=== PATIENT | male | born 1990 | race African-American/Black ===

== ENCOUNTER 2023-09-06 11:16 | Inpatient (IN) ==
[2023-09-06 11:53] LABS: Hematocrit 28.4 % (38-53); Mean Corpuscular Hemoglobin 20.7 pg (27-33); Mean Corpuscular Hgb Conc 31.5 g/dL (31-36); Mean Corpuscular Volume 65.6 fL (80-97); Red Blood Count 4.33 10^6/uL (4.06-5.63); Red Cell Distribution Width 15.8 % (12-17); White Blood Count 5.5 10^3/uL (3.6-10.2)
[2023-09-06 12:02] LABS: INR 1.07 (0.83-1.13)
[2023-09-06 12:17] LABS: High Sens Troponin Baseline 4 pg/mL (<20)
[2023-09-06 12:33] LABS: ALT 43 U/L (7-52); AST 43 U/L (13-39); Acetaminophen < 15 mcg/mL; Albumin 4.6 g/dL (3.2-5.2); Albumin/Globulin Ratio 1.8 (1-3); Alkaline Phosphatase 91 U/L (35-149); Anion Gap 5 mmol/L (2-16); Blood Urea Nitrogen 6 mg/dL (6-24); CO2 Carbon Dioxide 29 mmol/L (22-32); Calcium 9.2 mg/dL (8.6-10.3); Chloride 104 mmol/L (101-111); Creatinine, Serum 0.87 mg/dL (0.67-1.17); Globulin 2.6 g/dL (2-4); Glucose 83 mg/dL (70-100); Potassium 4.5 mmol/L (3.5-5.0); Salicylate < 2.50 mg/dL (<30); Sodium 138 mmol/L (135-145); Total Bilirubin 1.1 mg/dL (0.2-1.0); Total Protein 7.2 g/dL (6.4-8.9); eGFR CKD-EPI 116.8 (>60)
[2023-09-06 12:40] LABS: ABS Basophils 0.1 10^3/uL (0.0-0.1); ABS Eosinophils 0.1 10^3/uL (0.0-0.5); ABS Lymphocytes 2.1 10^3/uL (1.0-4.8); ABS Monocytes 0.3 10^3/uL (0.0-1.1); ABS Nucleated RBC 0.04 10^3/ul; Anisocytosis 1+; Eosinophil % 1.2 %; Hypochromasia 2+; Lymphocyte % 37.7 %; Mean Platelet Volume 8.3 fL (7.5-11.2); Microcytosis 3+; Nucleated Red Blood Cells % 0.7 %/100WBC (0.0-0.8); Platelet Count 99 10^3/uL (150-450); Polychromasia 1+; Target Cells 1+
[2023-09-06 12:46] LABS: Immature Retic Fraction 0.51
[2023-09-06 12:47] LABS: Corrected Retic Count 2.7 % (0.5-2.2); Hematocrit for Retic CNT 28.4 % (38-53); RBC Retic Count 4.33 10^6/ul (4.06-5.63)
[2023-09-06 13:20] LABS: High Sensitivity Troponin 1 Hr 3 pg/mL (<20)
[2023-09-06] MEDS: HYDROmorphone 0.5 MG/0.5 ML SYRINGE IV ONE ×2 (14:41→16:10)
[2023-09-06] MEDS ORDERED: Ondansetron 4 mg VIAL 2 MG/ML 2 ml VIAL IV PRN (17:09)
[2023-09-06] MEDS ORDERED: Polyethylene Glycol 3350 17 GM PACKET PO PRN (17:09)
[2023-09-06] MEDS ORDERED: HYDROmorphone 1 MG/1 ML SYRINGE IV PRN (17:23)
[2023-09-06 17:38] LABS: Folate 15.59 ng/mL (5.90-24.80)
[2023-09-06 17:39] LABS: Vitamin B12 285 pg/mL (180-914)
[2023-09-06] MEDS: Enoxaparin 40 MG/0.4 ML SYR SUBCUT SCH (18:51)
[2023-09-06] MEDS: HYDROmorphone 1 MG/1 ML SYRINGE IV PRN (19:37)
[2023-09-06] MEDS: Lactated Ringers 1000 ml BAG 1,000 ML IV SCH (21:14)
[2023-09-07 06:32] LABS: Albumin 4.5 g/dL (3.2-5.2); Calcium 9.1 mg/dL (8.6-10.3); Creatinine, Serum 0.88 mg/dL (0.67-1.17); Globulin 2.3 g/dL (2-4); Potassium 3.7 mmol/L (3.5-5.0); Total Bilirubin 1.4 mg/dL (0.2-1.0); Total Protein 6.8 g/dL (6.4-8.9); eGFR CKD-EPI 116.4 (>60)
[2023-09-07 07:22] LABS: ABS Eosinophils 0.1 10^3/uL (0.0-0.5); ABS Lymphocytes 2.6 10^3/uL (1.0-4.8); ABS Monocytes 0.6 10^3/uL (0.0-1.1); ABS Neutrophils 5.4 10^3/uL (1.5-7.6); ABS Nucleated RBC 0.13 10^3/ul; Hematocrit 27.5 % (38-53); Hemoglobin 8.7 g/dL (13.2-16.3); Lymphocyte % 30.1 %; Mean Corpuscular Hemoglobin 20.8 pg (27-33); Mean Corpuscular Hgb Conc 31.6 g/dL (31-36); Mean Corpuscular Volume 65.7 fL (80-97); Mean Platelet Volume 8.5 fL (7.5-11.2); Nucleated Red Blood Cells % 1.5 %/100WBC (0.0-0.8); Platelet Count 103 10^3/uL (150-450); Red Blood Count 4.18 10^6/uL (4.06-5.63); Red Cell Distribution Width 15.9 % (12-17); White Blood Count 8.7 10^3/uL (3.6-10.2)
[2023-09-07] MEDS: Lactated Ringers 1000 ml BAG 1,000 ML IV SCH (18:56)
[2023-09-07] MEDS ORDERED: Zosyn per Pharmacy NOTE FOLLOW UP SCH (19:00)
[2023-09-07] MEDS: Piperacillin/Tazobac 3.375 BAG 3.375 GM/100 ML BAG IV ONE (20:03)
[2023-09-07 20:47] LABS: Urine Appearance Clear; Urine Bilirubin Negative (Negative); Urine Blood Negative (Negative); Urine Color Colorless; Urine Glucose Negative (Negative); Urine Ketones Negative (Negative); Urine Nitrite Negative (Negative); Urine Protein Negative (Negative); Urine Specific Gravity 1.004 (1.002-1.030); Urine Urobilinogen Negative (Negative); Urine pH 7.5 (5.0-8.0)
[2023-09-07 20:56] LABS: ABS Eosinophils 0.1 10^3/uL (0.0-0.5); ABS Lymphocytes 2.1 10^3/uL (1.0-4.8); ABS Monocytes 0.5 10^3/uL (0.0-1.1); ABS Neutrophils 4.2 10^3/uL (1.5-7.6); ABS Nucleated RBC 0.03 10^3/ul; Eosinophil % 1.9 %; Hematocrit 28.1 % (38-53); Hemoglobin 8.9 g/dL (13.2-16.3); Lymphocyte % 29.8 %; Mean Corpuscular Hemoglobin 20.9 pg (27-33); Mean Corpuscular Hgb Conc 31.8 g/dL (31-36); Mean Corpuscular Volume 65.6 fL (80-97); Mean Platelet Volume 8.3 fL (7.5-11.2); Nucleated Red Blood Cells % 0.5 %/100WBC (0.0-0.8); Platelet Count 89 10^3/uL (150-450); Red Blood Count 4.28 10^6/uL (4.06-5.63); Red Cell Distribution Width 15.8 % (12-17); White Blood Count 6.9 10^3/uL (3.6-10.2)
[2023-09-07 21:00] LABS: Albumin 4.2 g/dL (3.2-5.2); Albumin/Globulin Ratio 1.7 (1-3); Calcium 8.8 mg/dL (8.6-10.3); Creatinine, Serum 0.88 mg/dL (0.67-1.17); Globulin 2.5 g/dL (2-4); Total Bilirubin 1.2 mg/dL (0.2-1.0); Total Protein 6.7 g/dL (6.4-8.9); eGFR CKD-EPI 116.4 (>60)
[2023-09-07] MEDS: ZOSYN 3.375 GM Q8H per EXTENDED INFUSION IV SCH (23:26)
[2023-09-08 07:04] LABS: ABS Eosinophils 0.2 10^3/uL (0.0-0.5); ABS Lymphocytes 2.2 10^3/uL (1.0-4.8); ABS Monocytes 0.5 10^3/uL (0.0-1.1); ABS Neutrophils 4.6 10^3/uL (1.5-7.6); ABS Nucleated RBC 0.03 10^3/ul; Eosinophil % 2.9 %; Hematocrit 28.1 % (38-53); Hemoglobin 9.4 g/dL (13.2-16.3); Lymphocyte % 28.7 %; Mean Corpuscular Hemoglobin 21.9 pg (27-33); Mean Corpuscular Hgb Conc 33.5 g/dL (31-36); Mean Corpuscular Volume 65.3 fL (80-97); Mean Platelet Volume 8.3 fL (7.5-11.2); Nucleated Red Blood Cells % 0.4 %/100WBC (0.0-0.8); Platelet Count 95 10^3/uL (150-450); Red Cell Distribution Width 16.1 % (12-17); White Blood Count 7.6 10^3/uL (3.6-10.2)
[2023-09-08 07:43] LABS: Calcium 8.7 mg/dL (8.6-10.3); Creatinine, Serum 0.96 mg/dL (0.67-1.17); Potassium 3.8 mmol/L (3.5-5.0)
[2023-09-08] MEDS ORDERED: Magnesium Hydroxide LIQ 30 ML UDC PO PRN (18:06)
[2023-09-08] MEDS: Senna TAB 8.6 mg TAB PO PRN (21:36)
[2023-09-09 11:34] LABS: Urine Appearance No Cx Clear (Clear); Urine Bacteria No Culture Absent /HPF (Absent); Urine Bilirubin No Culture Negative (Negative); Urine Blood No Culture Negative (Negative); Urine Color No Culture Light-Yellow; Urine Glucose No Culture Negative (Negative); Urine Ketones No Culture Negative (Negative); Urine Leukocytes No Culture Negative Leu/uL (Negative); Urine Nitrite No Culture Negative (Negative); Urine Protein No Culture Negative (Negative); Urine Red Blood Cell No Cult Trace(0-2/hpf) /HPF (0-Trace); Urine Specific Gravity No Cx 1.012 (1.002-1.030); Urine Urobilinogen No Cx 1+ (Negative); Urine White Blood Cell No Cult Absent /HPF (0-Trace)
[2023-09-09] MEDS: Iohexol 350 (CONTRAST) 500 ML MDV IV ONE (18:30)
[2023-09-10 07:56] LABS: ABS Eosinophils 0.1 10^3/uL (0.0-0.5); ABS Lymphocytes 3.6 10^3/uL (1.0-4.8); ABS Monocytes 0.4 10^3/uL (0.0-1.1); ABS Neutrophils 2.8 10^3/uL (1.5-7.6); ABS Nucleated RBC 0.02 10^3/ul; Anisocytosis 1+; Hematocrit 25.9 % (38-53); Hemoglobin 8.6 g/dL (13.2-16.3); Hypochromasia 2+; Lymphocyte % 51.6 %; Mean Corpuscular Hemoglobin 21.5 pg (27-33); Mean Corpuscular Volume 65.2 fL (80-97); Mean Platelet Volume 8.5 fL (7.5-11.2); Microcytosis 3+; Nucleated Red Blood Cells % 0.3 %/100WBC (0.0-0.8); Platelet Count 83 10^3/uL (150-450); Polychromasia 1+; Red Blood Count 3.97 10^6/uL (4.06-5.63); Red Cell Distribution Width 15.7 % (12-17); Target Cells 1+; White Blood Count 6.9 10^3/uL (3.6-10.2)
[2023-09-11 07:33] LABS: ABS Eosinophils 0.2 10^3/uL (0.0-0.5); ABS Lymphocytes 2.5 10^3/uL (1.0-4.8); ABS Monocytes 0.4 10^3/uL (0.0-1.1); Eosinophil % 3.7 %; Hematocrit 27.8 % (38-53); Lymphocyte % 41.1 %; Mean Corpuscular Hgb Conc 32.2 g/dL (31-36); Mean Corpuscular Volume 65.3 fL (80-97); Mean Platelet Volume 8.9 fL (7.5-11.2); Nucleated Red Blood Cells % 0.1 %/100WBC (0.0-0.8); Platelet Count 110 10^3/uL (150-450); Red Blood Count 4.26 10^6/uL (4.06-5.63); Red Cell Distribution Width 15.9 % (12-17); White Blood Count 6.1 10^3/uL (3.6-10.2)
[2023-09-11 11:59] VITALS: BP 127/72
== END 2023-09-11 13:10 | DRG 662 ==
LOC: EDHOLD 11:16 → ED 11:16 → MED 19:52 → SUATTDRO 09-08 17:34
PROVIDERS: ADMIT Internal Medicine; ATTEND Student in an Organized Health Care Education/Training Program